=== PATIENT | female | born 2000 | race Caucasian/White ===

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

== ENCOUNTER 2019-07-16 21:52 | Inpatient (IN) | payer MEDICAID ==
[2019-07-16 23:06] LABS: ABSOLUTE LYMPHOCYTES (AUTO) 1.8 10^3/uL (0.5-4.7); ABSOLUTE MONOCYTES (AUTO) 0.5 10^3/uL (0.1-1.4); ABSOLUTE NEUT (AUTO) 5.7 10^3/uL (1.7-8.2); BASOPHILS % (AUTO) 0.4 % (0-2); EOSINOPHILS % (AUTO) 0.3 % (0-6); HEMATOCRIT 33.7 % (36.0-47.0); LYMPHOCYTES % (AUTO) 22.8 % (13-45); MEAN CORPUSCULAR HEMOGLOBIN 27.8 pg (27.0-33.4); MEAN CORPUSCULAR HGB CONC 32.7 g/dL (32.0-36.0); MEAN CORPUSCULAR VOLUME 85 fl (80-97); MONOCYTES % (AUTO) 6.2 % (3-13); PLATELET COUNT 224 10^3/uL (150-450); RED BLOOD COUNT 3.98 10^6/uL (3.72-5.28); RED CELL DISTRIBUTION WIDTH 17.1 % (11.5-14.0); SEGMENTED NEUTROPHILS % (AUTO) 70.3 % (42-78); TOTAL CELLS COUNTED % (AUTO) 100 %
[2019-07-16] MEDS ORDERED: RINGERS SOLUTION,LACTATED 1,000 ML IV PRN (23:06)
[2019-07-16 23:07] LABS: APPEARANCE,URINE CLOUDY; BILIRUBIN,URINE NEGATIVE (NEGATIVE); COLOR,URINE YELLOW; GLUCOSE, URINE NEGATIVE (NEGATIVE); KETONES,URINE NEGATIVE (NEGATIVE); LEUKOCYTE ESTERASE,URINE SMALL (NEGATIVE); NITRITE,URINE NEGATIVE (NEGATIVE); PROTEIN,URINE 100 mg/dL (NEGATIVE); URINE SPECIFIC GRAVITY 1.012; UROBILINOGEN,URINE NEGATIVE mg/dL (<2.0)
[2019-07-16 23:34] LABS: URINE AMPHETAMINES SCREEN NEGATIVE; URINE BARBITURATES SCREEN NEGATIVE; URINE BENZODIAZEPINES SCREEN NEGATIVE; URINE COCAINE SCREEN NEGATIVE; URINE MARIJUANA (THC) SCREEN NEGATIVE; URINE METHADONE SCREEN NEGATIVE; URINE PHENCYCLIDINE SCREEN NEGATIVE
[2019-07-17] MEDS ORDERED: MISOPROSTOL 0.2 MG TABLET ONE (00:41)
[2019-07-17] MEDS ORDERED: OXYTOCIN 10 UNIT/ML VIAL ONE (00:41)
[2019-07-17] MEDS ORDERED: BUPIVACAINE HCL 0.25 % INJ/PF (2.5 MG/1 ML) 30 ML VIAL ONE (00:42)
[2019-07-17] MEDS ORDERED: OXYTOCIN/NORMAL SALINE 20 UNIT/1,000 ML RTUINJ ONE (00:42)
[2019-07-17] MEDS ORDERED: FENTANYL/BUPIVACAINE/NS/PF 300 MCG/150 ML RTUINJ EPI ONE (00:42)
[2019-07-17] MEDS ORDERED: EPHEDRINE SULFATE INJ 50 MG/1 ML AMPULE ONE (00:42)
[2019-07-17] MEDS ORDERED: LIDOCAINE 1% INJ-PF (10 MG/ML) 30 ML SDV ONE (00:42)
--- NOTE | 2019-07-17 06:15 | Admission Physical ---
Datetime Report Generated by CPN: 07/17/2019 06:15 CURRENT ADMISSION Chief Complaint: Suspected Ruptured Membranes Indication for Induction: PROM Admit Impression : Term, Intrauterine ; Ruptured Membranes Admit Plan: Admit to Unit; Initiate Labor Augmentation Protocol ALLERGIES Medication Allergies: No Medication Allergies: No Known Allergies (12/07/2012) Latex: No Latex Allergies Food Allergies: n/a Environmental Allergies: n/a OBSTETRICAL HISTORY EDC: 07/20/2019 00:00 : 1 Para: 0 Gestational Diabetes: No Rh Sensitization: No Incompetent Cervix: No MEHRDAD: No Infertility: No ART Treatment: No Uterine Anomaly: No IUGR: No Hx Previous C/S: No Macrosomia: No Hx Loss/Stillborn: No PIH: No Hx : No Placenta Previa/Abruption: No Depression/PP Depression: No PTL/PROM: No Post Hemorrhage: No Current Procedures: Ultrasound; NST Obstetrical History Comments: G1 - current SEE RECORDS Alcohol: No Marijuana : No Cocaine: No Other Illicit Drugs: No Cigarettes: Former Smoker. [id number] MEDICAL HISTORY Diabetes: No Blood Transfusion: No Pulmonary Disease (Asthma, TB): No Breast Disease: No Hypertension: No Cmo & President Surgery: No Heart Disease: No Hosp/Surgery: Yes Autoimmune Disorder: No Anesthetic Complications: No Kidney Disease: No Abnormal Pap Smear: No Neuro/Epilepsy: No Psychiatric Disorders: No Other Medical Diseases: No Hepatitis/Liver Disease: No Significant Family History: No Varicosities/Phlebitis: No Trauma/Violence : No Thyroid Dysfunction: No Medical History Comments: MRSA infection/surgery (2008) INFECTIOUS HISTORY Gonorrhea: No Genital Herpes: No Chlamydia: No Tuberculosis: No Syphilis: No Hepatitis: No HIV/AIDS Exposure: No Rash or Viral Illness: No HPV: No PHYSICAL EXAM General: Normal HEENT: Normal Neurologic: Normal Thyroid: Normal Heart: Normal Lungs: Normal Breast: Normal Back: Normal Abdomen: Normal Genitourinary Exam: Normal Extremities: Normal DTRs: Normal Pelvic Type: Adequate Vital Signs: Reviewed; Within Normal Limits VAGINAL EXAM Dilatation: 3 Effacement: 75 Station: -2 MEMBRANES Pooling: Positive Membranes: Ruptured FETUS A EGA: 39.4 Monitoring: External US FHR- Baseline: 130 Variability: Moderate 6-25bpm Accelerations: 15X15 Decelerations: None FHR Category: Category I Estimated Weight (gm): 3500 Presentation: Vertex PLANS FOR LABOR AND DELIVERY Labor and Delivery: None Pain Management: Epidural Feeding Preference: Breast Circumcision: N/A INFORMED CONSENT Signature: with User ID: [email or web address]
[2019-07-17] MEDS ORDERED: PSEUDOEPHEDRINE HCL 30 MG TABLET PO PRN (07:28)
[2019-07-17] MEDS ORDERED: PROMETHAZINE HCL 25 MG TABLET PO PRN (07:28)
[2019-07-17] MEDS ORDERED: DIBUCAINE 1% OINTMENT 28 GM TP PRN (07:28)
[2019-07-17] MEDS ORDERED: NA PHOS,M-B/NA PHOS,DI-BA (ADULT) 133 ML ENEMA PR PRN (07:28)
[2019-07-17] MEDS ORDERED: ACETAMINOPHEN WITH CODEINE #3 TABLET PO PRN ×2 (07:28)
[2019-07-17] MEDS ORDERED: DIPHENHYDRAMINE HCL 25 MG CAPSULE PO PRN (07:28)
[2019-07-17] MEDS ORDERED: OXYTOCIN/NORMAL SALINE 20 UNIT/1,000 ML RTUINJ IV PRN (07:28)
[2019-07-17] MEDS ORDERED: MAGNESIUM HYDROXIDE SUSP 30 ML UDCUP PO PRN (07:28)
[2019-07-17] MEDS ORDERED: PROMETHAZINE HCL 25 MG SUPP.RECT PR PRN (07:28)
[2019-07-17] MEDS ORDERED: GLYCERIN/WITCH HAZEL LEAF 1 EACH MED..WIPE TP PRN (07:28)
[2019-07-17] MEDS ORDERED: BENZOCAINE/MENTHOL AEROSOL SPRAY 56 ML TOP PRN (07:28)
[2019-07-17] MEDS ORDERED: ZOLPIDEM TARTRATE 5 MG TABLET PO PRN (07:28)
[2019-07-17] MEDS ORDERED: PROMETHAZINE HCL INJ 25 MG/1 ML VIAL IV PRN (07:28)
[2019-07-17] MEDS ORDERED: MEASLES,MUMPS&RUBELLA VACC/PF 0.5 ML VIAL SUBCUT PRN (07:28)
[2019-07-17] MEDS ORDERED: ACETAMINOPHEN 650 MG SUPP.RECT PR PRN (07:28)
[2019-07-17] MEDS ORDERED: DIPH/PERTUSS(ACELL)/TETANUS VAC/PF 0.5 ML SYR (>=10YO) IM PRN (07:28)
[2019-07-17] MEDS: SENNOSIDES/DOCUSATE 8.6-50 MG 1 EACH TABLET PO SCH (11:53)
[2019-07-17] MEDS: FAMOTIDINE 20 MG TABLET PO SCH ×2 (11:54→23:05)
[2019-07-17] MEDS: PRENATAL VITAMIN W DHA CAPSULE PO SCH (11:54)
[2019-07-17] MEDS: FERROUS SULFATE 325 MG TABLET PO SCH ×2 (11:54→17:40)
[2019-07-17] MEDS: DOCUSATE SODIUM 100 MG CAPSULE PO SCH ×2 (11:54→17:40)
[2019-07-17] MEDS: IBUPROFEN 800 MG TABLET PO SCH ×2 (13:39→23:06)
[2019-07-18] MEDS: IBUPROFEN 800 MG TABLET PO SCH ×2 (06:00→15:26)
[2019-07-18 07:42] LABS: HEMATOCRIT 31.1 % (36.0-47.0); HEMOGLOBIN 10.2 g/dL (12.0-15.5); MEAN CORPUSCULAR HEMOGLOBIN 28.1 pg (27.0-33.4); MEAN CORPUSCULAR HGB CONC 32.8 g/dL (32.0-36.0); MEAN CORPUSCULAR VOLUME 86 fl (80-97); PLATELET COUNT 183 10^3/uL (150-450); RED BLOOD COUNT 3.64 10^6/uL (3.72-5.28); RED CELL DISTRIBUTION WIDTH 17.8 % (11.5-14.0); WHITE BLOOD COUNT 10.4 10^3/uL (4.0-10.5)
[2019-07-18] MEDS: FAMOTIDINE 20 MG TABLET PO SCH (09:27)
[2019-07-18] MEDS: SENNOSIDES/DOCUSATE 8.6-50 MG 1 EACH TABLET PO SCH (09:27)
[2019-07-18] MEDS: PRENATAL VITAMIN W DHA CAPSULE PO SCH (09:27)
[2019-07-18] MEDS: FERROUS SULFATE 325 MG TABLET PO SCH ×2 (09:27→17:34)
[2019-07-18] MEDS: DOCUSATE SODIUM 100 MG CAPSULE PO SCH ×2 (09:28→17:34)
--- NOTE | 2019-07-18 11:14 | PDOC PROGRESS REPORT ---
Subjective-OB Progress Note for:: 07/18/19 Subjective: reports bleedind slowing, pain controlled with current meds. denies needs. wants to go home today Physical Exam (OB) Vital Signs: Temp Pulse Resp BP Pulse Ox 97.4 F 84 16 124/78 98 07/17/19 19:46 07/17/19 19:46 07/17/19 19:46 07/17/19 19:46 07/17/19 19:46 Intake & Output 07/17/19 07/18/19 07/19/19 06:59 06:59 06:59 Weight 84.8 kg - Abdomen Description: Soft Hernia Present: No Fundal Description: Firm, Midline Fundal Height: u/u - u/2 - Abdominal Distension: No distension Tenderness: Nontender - Extremities Lower extremities: Demi's sign - neg Calf: Normal, Nontender Objective-Diagnostic Laboratory: 07/18/19 07:04 07/18/19 07:04 WBC 10.4 RBC 3.64 L Hgb 10.2 L Hct 31.1 L MCV 86 MCH 28.1 MCHC 32.8 RDW 17.8 H Plt Count 183 Assessment and Plan(PN) - Assessment and Plan (1) Obstetrical laceration Is this a current diagnosis for this admission?: Yes (2) PROM (premature rupture of membranes) Is this a current diagnosis for this admission?: Yes (3) Vaginal delivery Is this a current diagnosis for this admission?: Yes - Time Spent with Patient Time with patient: Less than 15 minutes Medications reviewed and adjusted accordingly: Yes - Disposition Within: within 24 hours
--- NOTE | 2019-07-18 11:19 | PDOC DISCHARGE SUMMARY ---
Impression - Admit/DC Date/PCP Admission Date/Primary Care Provider: 07/16/19 22:45 RAHEEM VALDERRAMA MD Discharge Date: 07/18/19 - Discharge Diagnosis (1) Obstetrical laceration Is this a current diagnosis for this admission?: Yes (2) PROM (premature rupture of membranes) Is this a current diagnosis for this admission?: Yes (3) Vaginal delivery Is this a current diagnosis for this admission?: Yes - Additional Information Discharge Diet: Regular Discharge Activity: Balance Activity w/Rest, Pelvic Rest Referrals: RAHEEM VALDERRAMA MD [Primary Care Provider] - Prescriptions: Ibuprofen [Motrin 800 mg Tablet] 800 mg PO Q8HP PRN #60 tablet PRN Reason: Home Medications: Vits96/Iron Fum/Folic [ Tablet] 1 tab PO DAILY 07/16/19 Docusate Sodium [Colace 100 mg Capsule] 100 mg PO BID capsule 07/18/19 Ibuprofen [Motrin 800 mg Tablet] 800 mg PO Q8HP PRN #60 tablet 07/18/19 HPI Gestational Age: 39+4 Reason(s) for Admission: PROM Procedures: NST Intrapartum Procedure(s): Spontaneous Vaginal Delivery Complication(s): Laceration-Vaginal Laceration-Degree: 2nd Results Laboratory Results: WBC 10.4 10^3/uL (4.0-10.5) 07/18/19 07:04 RBC 3.64 10^6/uL (3.72-5.28) L 07/18/19 07:04 Hgb 10.2 g/dL (12.0-15.5) L 07/18/19 07:04 Hct 31.1 % (36.0-47.0) L 07/18/19 07:04 MCV 86 fl (80-97) 07/18/19 07:04 MCH 28.1 pg (27.0-33.4) 07/18/19 07:04 MCHC 32.8 g/dL (32.0-36.0) 07/18/19 07:04 RDW 17.8 % (11.5-14.0) H 07/18/19 07:04 Plt Count 183 10^3/uL (150-450) 07/18/19 07:04 Lymph % (Auto) 22.8 % (13-45) 07/16/19 22:43 [place] % (Auto) 6.2 % (3-13) 07/16/19 22:43 Eos % (Auto) 0.3 % (0-6) 07/16/19 22:43 Baso % (Auto) 0.4 % (0-2) 07/16/19 22:43 Absolute Neuts (auto) 5.7 10^3/uL (1.7-8.2) 07/16/19 22:43 Absolute Lymphs (auto) 1.8 10^3/uL (0.5-4.7) 07/16/19 22:43 Absolute Monos (auto) 0.5 10^3/uL (0.1-1.4) 07/16/19 22:43 Absolute Eos (auto) 0.0 10^3/uL (0.0-0.6) 07/16/19 22:43 Absolute Basos (auto) 0.0 10^3/uL (0.0-0.2) 07/16/19 22:43 Seg Neutrophils % 70.3 % (42-78) 07/16/19 22:43 Urine Color YELLOW 07/16/19 22:15 Urine Appearance CLOUDY 07/16/19 22:15 Urine pH 7.0 (5.0-9.0) 07/16/19 22:15 Ur Specific [place] 1.012 07/16/19 22:15 Urine Protein 100 mg/dL (NEGATIVE) H 07/16/19 22:15 Urine Glucose (UA) NEGATIVE mg/dL (NEGATIVE) 07/16/19 22:15 Urine Ketones NEGATIVE mg/dL (NEGATIVE) 07/16/19 22:15 Urine Blood SMALL (NEGATIVE) H 07/16/19 22:15 Urine Nitrite NEGATIVE (NEGATIVE) 07/16/19 22:15 Urine Bilirubin NEGATIVE (NEGATIVE) 07/16/19 22:15 Urine Urobilinogen NEGATIVE mg/dL (<2.0) 07/16/19 22:15 Ur Leukocyte Esterase SMALL (NEGATIVE) H 07/16/19 22:15 Urine Ascorbic Acid NEGATIVE (NEGATIVE) 07/16/19 22:15 Urine Opiates Screen NEGATIVE 07/16/19 22:15 Urine Methadone Screen NEGATIVE 07/16/19 22:15 Ur Barbiturates Screen NEGATIVE 07/16/19 22:15 Ur Phencyclidine Scrn NEGATIVE 07/16/19 22:15 Ur Amphetamines Screen NEGATIVE 07/16/19 22:15 U Benzodiazepines Scrn NEGATIVE 07/16/19 22:15 Urine Cocaine Screen NEGATIVE 07/16/19 22:15 U Marijuana (THC) Screen NEGATIVE 07/16/19 22:15 RPR NONREACTIVE (NONREACTIVE) 07/16/19 22:43 Blood Type O POSITIVE 07/16/19 22:43 Antibody Screen NEGATIVE 07/16/19 22:43 Plan Plan of Treatment: follow up at [facility] in 4 weeks for post check
[2019-07-18 17:00] VITALS: BP 110/82
--- NOTE | 2019-07-20 13:02 | Delivery Summary ---
Del Sum A-C Datetime Report Generated by CPN: 07/20/2019 13:01 DELIVERY PERSONNEL DELIVERY PERSONNEL: [id number] Delivery Doctor:: Camryn Bueno MD Labor and Delivery Nurse:: Milagros Ronaldo, RNC Labor and Delivery Nurse:: Jorje Wood, RN Nursery Nurse:: Svetlana Gutierrez, [employer] OPERATOR MATERNAL INFORMATION Delivery Anesthesia: Epidural Estimated Blood Loss (ml): 200 Delivery QBL: 400 Maternal Complications: None LABOR SUMMARY EDC: 07/20/2019 00:00 No. Babies in Womb: 1 Attempted: No Labor Anesthesia: None LABOR INFORMATION Reason for Induction: Not Applicable Onset of Labor: 07/16/2019 19:45 Complete Dilatation: 07/17/2019 06:22 Oxytocin: N/A Group B Beta Strep: negative Antibiotics # of Doses: n/a Antibiotics Time of Last Dose: n/a Name of Antibiotic Given: n/a Steroids Given: None Reason Steroids Not Administered: Not Applicable Other Reason Not Administered: N/A MEMBRANES Membranes Rupture Method: Spontaneous Rupture of Membranes: 07/16/2019 21:30 Length of Rupture (hr): 9.37 Amniotic Fluid Color: Clear Amniotic Fluid Amount: Small Amniotic Fluid Odor: Normal STAGES OF LABOR Stage 1 hr: 10 Stage 1 min: 37 Stage 2 hr: 0 Stage 2 min: 30 Stage 3 hr: 0 Stage 3 min: 4 Total Time in Labor hr: 11 Total Time in Labor min: 11 VAGINAL DELIVERY Episiotomy: None Laceration #1: Perineal Laceration Extension #1: Second Degree Other Laceration: clitoral laceration, second degree left vaginal side wall Laceration Repair: Yes Laceration Repair Note: torn septum trimmed and remenants oversewn with 3-0 chromic. clitoral de la fuente repaired with 2-0 chromic. right pelvic sidewall repaired with 3-0 chromic. all sutures interrupted. CSECTION DELIVERY Primary Indication: N/A Secondary Indication: N/A BABY A INFORMATION Delivery Date/Time: 07/17/2019 06:52 Method of Delivery: Vaginal Born in Route : No : N/A Forceps: N/A Vacuum Extraction: N/A Shoulder Dystocia : No PRESENTATION/POSITION BABY A Presentation: Cephalic Cephalic Presentation: Vertex Vertex Position: Left Occipital Anterior Breech Presentation: N/A PLACENTA INFORMATION BABY A Placenta Delivery Time : 07/17/2019 06:56 Placenta Method of Delivery: Spontaneous Placenta Method of Delivery: Spontaneous Placenta Status: Delivered SCORES BABY A Heart Rate 1 min: >100 bpm Resp Effort 1 min: Good Cry Reflex Irritability 1 min: Cough or Sneeze or Pulls Away Muscle Tone 1 min: Active Motion Color 1 min: Blue/Pale Resuscitation Effort 1 min: Tactile Stimulation SCORE 1 MIN: 8 Heart Rate 5 min: >100 bpm Resp Effort 5 min: Good Cry Reflex Irritability 5 min: Cough or Sneeze or Pulls Away Muscle Tone 5 min: Active Motion Color 5 min: Body [place], Extremities Blue Resuscitation Effort 5 min: Tactile Stimulation SCORE 5 MIN: 9 INFORMATION BABY A Gestational Age at Delivery: 39.4 Gestational Status: Full Term- 39- 40.6 Weeks Infant Outcome : Liveborn Condition : Stable Sex: Female IDENTIFICATION BABY A Verification Date/Time: 07/17/2019 07:01 ID Band Number: [id number] Mother's Name Verified: Yes RN Verifying : Vianey Corona, TEXTILE WORKER and Jorje Muir, RN WEIGHT/LENGTH BABY A Birthweight (gm): 3740 Weight (lb): 8 Infant Weight (oz): 4 Length (in): 21.00 Length (cm): 53.34 CORD INFORMATION BABY A Nuchal Cord : Around Neck x2, Tight Cord Blood Taken: Yes-For Storage (Mom's Blood type +) Suction: None ASSESSMENT BABY A Skin to Skin: Yes BABY B INFORMATION : N/A SIGNATURES Signature: with User ID: Bessy
== END 2019-07-18 18:27 | disposition home or self-care (01) | DRG 768 ==
LOC: LC 21:52 → LR 22:45 → 2S 07-17 09:51
PROVIDERS: ADMIT Obstetrics & Gynecology; ATTEND Obstetrics & Gynecology
PROC: 10E0XZZ Delivery of Products of Conception, External Approach (ICD-10-PCS; principal; 2019-07-17)
PROC: 0UQJXZZ Repair Clitoris, External Approach (ICD-10-PCS; 2019-07-17)
PROC: 0KQM0ZZ Repair Perineum Muscle, Open Approach (ICD-10-PCS; 2019-07-17)
DX: O42.92 Full-term premature rupture of membranes, unspecified as to length of time between rupture and onset of labor (principal); Z37.0 Single live birth; O71.4 Obstetric high vaginal laceration alone; O70.0 First degree perineal laceration during delivery; O69.1XX0 Labor and delivery complicated by cord around neck, with compression, not applicable or unspecified; Z86.14 Personal history of Methicillin resistant Staphylococcus aureus infection; Z3A.39 39 weeks gestation of pregnancy; Z87.891 Personal history of nicotine dependence
CPT/HCPCS: 36415; 80307; 81005; 85025; 85027; 86592; 86850; 86900; 86901; J2590; J3010; J3490

== ENCOUNTER 2020-07-21 08:35 | Emergency (ER) | payer BC, MEDICAID ==
--- NOTE | 2020-07-21 09:34 | RADIOLOGY REPORT (SQ) ---
EXAM DESCRIPTION: FOOT LEFT COMPLETE IMAGES COMPLETED DATE/TIME: 07/21/2020 9:20 am REASON FOR STUDY: pain across TOP of foot after stomping on slide COMPARISON: 03/05/2012 NUMBER OF VIEWS: Three views. TECHNIQUE: AP, lateral and oblique radiographic images acquired of the left foot. LIMITATIONS: None. FINDINGS: MINERALIZATION: Normal. BONES: No acute fracture or dislocation. No worrisome bone lesions. JOINTS: No effusions. SOFT TISSUES: No soft tissue swelling. No foreign body. OTHER: No other significant finding. IMPRESSION: NEGATIVE STUDY OF THE LEFT FOOT. NO RADIOGRAPHIC EVIDENCE OF ACUTE INJURY. TECHNICAL DOCUMENTATION: JOB ID: [id number] [employer]- All Rights Reserved Reading location - IP/workstation name: [email or web address]
[2020-07-21 12:39] VITALS: BP 124/69
--- NOTE | 2020-07-21 12:42 | ER Document Report ---
ED General - General Chief Complaint: Foot Injury Stated Complaint: LEFT FOOT PAIN, SWELLING Time Seen by Provider: 07/21/20 12:28 TRAVEL OUTSIDE OF THE [place] IN LAST 30 DAYS: No - HPI Notes: Chief Complaint: Left foot pain Historian: History obtained from patient HPI: This is a 20-year-old female presents to the ER complaining of left foot pain after stepping on a plastic slide forcefully trying for the other. Patient was barefoot. Denies any open wounds or bleeding. Patient is bearing weight but has had increased pain while bearing weight. Patient says pain is to the mid dorsum of her foot as well as to the mid plantar surface. Pain does not radiate. no treatments tried ROS: Constitutional: no fevers. HEENT: no PARRA, sore throat, or vision changes. CV: no chest pain or palpitations. Resp: no cough or SOB. GI: no abdominal pain, or n/v/d. : no dysuria, hematuria, or incont. MSK: left foot pain. Skin: no rashes or itching. Neuro: no seizures, weakness, numbness, or confusion. Hematological: no ecchymosis or easy bleeding. Endocrine: no polyuria/polydipsia, no heat/cold intolerance. Psych: no SI/HI, AH/VH or memory loss. PMHx: Reviewed and agree as charted by RN. PSHx: Reviewed and agree as charted by RN. SOCHx: Reviewed and agree as charted by RN. FHX: No significant familial comorbid conditions directly related to patient complaint Current Medications: Reviewed and agree with the patient medications as charted by the RN. Allergies: Reviewed and agree with the listed allergies as charted by the RN Physical Exam: Vitals: Reviewed in chart as documented by RN. General: Alert and in NAD. Head: Normocephalic; atraumatic Eyes: PERRLA, Conjunctivae clear sclerae non-icteric bilat ENT: no soft palate swelling or uvular deviation Neck: trachea midline, no unilateral swelling/tenderness/lymphadenopathy CV: RRR, no M/R/G; symmetric distal pulses Resp: respirations even and unlabored, CTA bilat. GI: abd soft and nondistended. NTTP. normal BS. no masses/HSM. no CVAT bilat MSK: FROM of all extremities. No midline CTL spine tenderness/deformity left foot- tender to mid dorsum of foot, mild swelling. no ecchymosis or deformity tender to mid plantar surface - no ecchymosis. mild tenderness when plalpating between 1st/2nd metatarsals. no laxity noted. no 5th metatarsal tenderness. talocalcaneal jt intact achilles intact pedal pulse 2+, cap refill < 3 sec, sensory intact distally from of knee, ankle, and toes. Skin: warm, moist, good turgor. no rash/lesions. Neuro: Alert and oriented X 4. following CN 2-12 intact. no unilateral weakness/numbness Psych: No SI/HI or AH/VH. ED Results: Medical Decision-Making: Medical Decision-making/Differential Diagnosis: Consider various etiologies including but not limited to skin/soft tissue structure injury, MSK injury, strain/sprain, fracture, dislocation, bursitis, tendonitis, contusion, ect Plan- xr foot- reviewed imaging- no acute findings. pt likely sprained ligaments in her foot. unlikely to have lis franc disruption based on xray and exam. offered hard sole shoe but pt declined, will jenae wrap. nsaids/tylenol, rice, wbat. ortho referral given for f/u if she is not improved in 1 week or has worsening symptoms. This course of action was discussed with the patient and/or family. They were amenable to this, verbalized understanding, and were without further questions. - Related Data Allergies/Adverse Reactions: No Known Allergies Allergy (Verified 12/07/12 11:23) Past Medical History - Social History Smoking Status: Never Smoker Chew tobacco use (# tins/day): No Frequency of alcohol use: Rare Drug Abuse: None Family History: None Neurological Medical History: Denies: Hx Seizures Skin Medical History: Reports Hx MRSA Past Surgical History: - Immunizations Immunizations up to date: Yes Hx Diphtheria, Pertussis, Tetanus Vaccination: No Physical Exam - Vital signs Vitals: Temp BP 98.0 F 122/61 07/21/20 08:42 07/21/20 08:42 Course - Vital Signs Vital signs: Temp Pulse Resp BP Pulse Ox 98.0 F 122/61 07/21/20 08:42 07/21/20 08:42 - Laboratory Results Critical Laboratory Results Reviewed: No Critical Results - Radiology Results Critical Radiology Results Reviewed: No Critical Results Discharge - Discharge Clinical Impression: Sprain of left foot Qualifiers: Encounter type: initial encounter Qualified Code(s): S93.602A - Unspecified sprain of left foot, initial encounter Condition: Stable Disposition: HOME, SELF-CARE Instructions: Sprain ([facility]) Additional Instructions: tylenol/motrin for pain. rest, wrap, elevate, and ice foot. weight bearing as tolerated. follow up with orthopedics next week if your symptoms have not resolved or greatly improved. primary care doctor follow up for recheck. return if your conditoin worsens. Referrals: URSULA ANDRE, [ACTIVE STAFF] - Follow up as needed
== END 2020-07-21 12:49 | disposition home or self-care (01) ==
LOC: ER 08:35
DX: S93.602A Unspecified sprain of left foot, initial encounter (principal); M79.672 Pain in left foot; M79.89 Other specified soft tissue disorders; X58.XXXA Exposure to other specified factors, initial encounter
CPT/HCPCS: 99283